=== PATIENT | female | born 1990 | race Caucasian/White ===

== ENCOUNTER → 2018-07-31 16:49 | Outpatient (CLI) | payer OTHER, SELFPAY ==
[2018-07-31 10:16] VITALS: BMI 26.4
[2018-07-31 21:45] LABS: Chlamydia Trachomatis by PCR Negative (Negative); Neisserai gonorrhoeae by PCR Negative (Negative); Probe Check PASS; Sample Adequacy Control PASS; Specimen Processing Control PASS
[2018-08-06 11:24] LABS: HPV Reflexed? NOT INDICATED
--- OUTSIDE RECORDS SUMMARY | 2018-09-16 14:33 | XMS RPT_ITS ---
:1990 Author Organization OHIP Care Team Providers Name Role Phone Marija Torrez Attending Unavailable Nikita Stein Referring Unavailable Marija Torrez Attending Unavailable Marija Torrez Referring Unavailable Nikita Stein Primary Care Unavailable PROBLEMS PROBLEMS DATE TYPE CONDITION / CODE ATTENDING STATUS SOURCE 08/11/2018 Unknown Z97.5 - Presence of Marija Torrez Active [place] (intrauterine) [facility] contraceptive Hospital device / Repository Z97.5(ICD-10) 08/11/2018 Unknown Z30.432 - Encounter ShanMarija myles Active [place] for removal of Community intrauterine Hospital contraceptive Repository device / Z30.432(ICD-10) 08/11/2018 Unknown Z01.419 - Encounter ShanMarija myles Active [place] for gynecological Community examination Hospital (general) (routine) Repository without abnormal findings / Z01.419(ICD-10) 08/11/2018 Unknown Z12.4 - Encounter [place] Active [place] for screening for Community malignant neoplasm Hospital of cervix / Repository Z12.4(ICD-10) 08/11/2018 Unknown Z11.3 - Encounter ShanMarija myles Active [place] for screening for Community infections with a Hospital predominantly Repository sexual mode of transmission / Z11.3(ICD-10) 08/11/2018 Unknown Z30.433 - Encounter [place], Molly Active [place] for removal and Community reinsertion of Hospital intrauterine Repository contraceptive device / Z30.433(ICD-10) PROCEDURES PROCEDURES No Procedure Records FoundRESULTS RESULTS COMPLIANCE DIRECTOR OFFICE VISIT Observed: 07/31/2018 Status: F Source: [place] REPORT 11:01 AM [facility] REPOSITORY [facility] [address] [place] [address] OFFICE VISIT Date of Service: 07/31/18 MR#: [id number] Acct: [id number] Name: DARIEN COATS Rep #: [id number] : 1990 Provider: JACOB Torrez Age/Sex: 28/F Location: [facility] [place] Status: Signed Intake Vital Signs07/31/18 Height 5 ft 1 in 07/31/18 Weight: 140 lb 07/31/18 Body Mass Index (BMI) 26.4 07/31/18 Blood Pressure 122/80 H Intake Visit Reasons: MIRENA REPLACEMENT Chief Complaint: NEW annual Heel Sprayer First Required: No Is patient in pain?: No Allergies No Known Allergies Allergy (Verified 07/31/18 10:16) Medications multivitamin,ru-zzel-tszkjzdo tablet 1 tab PO DAILY 07/31/18 [History Confirmed 07/31/18] Is last menstrual period known: No Post menopausal: No Patient : No : No PFSH Surgical History History of ankle surgery (Acute) Family History Father Diabetes Heart disease Social History Smoking Status: Never smoker alcohol intake: current details: social substance use type: does not use caffeine: Yes what type of physical activity do you participate in: walking, running seatbelt use: always do you feel safe at home: Yes 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 Last PAP: 2017 at [facility] History of abnormal PAP: colp age 23 negative Wants mirena replaced. Female Reproductive History Questions: Metorrhagia: No, Sexually active: Yes, Dyspareunia: No, PCB: No ROS Const Constitutional: Denies fatigue, weight gain or weight loss Cardio Card: Denies chest pain Resp Resp: Denies cough or shortness of breath with activity GI GI: Denies abdominal pain, constipation, change in stools, vomiting or bloating : Reports as per HPI; denies urinary frequency, pelvic pain, urinary urgency, vaginal discharge, vaginal itching, urinary incontinence or difficulty urinating Exam Const General: cooperative, healthy appearing, no acute distress, well developed Orientation: alert, oriented to person, oriented to place [facility] Head: normal to inspection Neck Neck: normal visual inspection Thyroid: thyroid normal Lymphatic: no lymphadenopathy noted Chest Breast inspection: normal inspection of the breasts, normal inspection of the axillae Breast palpation: normal palpation of the breasts, normal palpation of the axillae, no axillary lymphadenopathy Resp Effort AND Inspection: normal respiratory effort GI Palpation: soft, nontender, no masses Rectal Exam: deferred External Female Exam: normal external appearance, normal appearance of the urethra Urethra: normal appearance of the urethra, normal palpation Speculum Exam - Vagina: normal appearance of the vagina, normal vaginal discharge Speculum Exam - Cervix: normal appearance of the cervix Bimanual Exam- Vagina AND Uterus: normal bimanual exam, uterine size normal, uterine shape normal, uterus non-tender Bimanual Exam- Adnexa, other: normal adnexae, no adnexal masses, adnexae non-tender, pelvic support normal Pelvic Support: normal Neuro General: alert, oriented x3 Psych Affect: normal affect Office Procedures IUD Removal IUD Removal Details: Sign out documentation: Completed Procedure: Speculum placed in vagina, IUD string visualized/short and grasped with tissue forceps. IUD easily removed and patient tolerated well Liletta IUD IUD GC/Chlamydia:: done Test: Yes Not Applicable Consent Signed: Yes Time out checklist: patient, procedure, site marked/identified, positioning of patient, supplies available, allergies confirmed, team agrees on procedure IUD: Yes Jayant Time out time: 10:46 Details: Sign in Communication: Completed Sign out documentation: Completed The uterus sounded to 7 cm. After prepping the cervix with betadine and using sterile technique, the cervix was grasped with a single tooth tenaculum and the IUD was inserted without difficulty and the string was cut to 3cm from the external os of the cervix. All instruments were removed from the vagina and excellent hemostasis was noted. Procedure Summary: patient tolerated the procedure well without complication. levonorgestrel 20 mcg/24 hr (5 years) intrauterine device 1 insert Intrauterine ONCE IUD Details: Sign in Communication: Completed Sign out documentation: Completed The uterus sounded to [] cm. After prepping the cervix with betadine and using sterile technique, the cervix was grasped with a single tooth tenaculum and the IUD was inserted without difficulty and the string was cut to 3cm from the external os of the cervix. All instruments were removed from the vagina and excellent hemostasis was noted. Procedure Summary: patient tolerated the procedure well without complication. 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 Encounter for gynecological examination without abnormal finding Z01.419 2. Pap smear for cervical cancer screening Z12.4 3. Screen for STD (sexually transmitted disease) Z11.3 4. Encounter for IUD removal and reinsertion Z30.433 Plan Completed breast and pelvic exam Reviewed diet and exercise Pap thin prep pap with reflex HPV Contraception-mirena IUD removed, liletta IUD inserted. Reviewed S AND S infection and condom use. Written information given RTO 6 weeks Marija Torrez ADJ[employer]CT [employer] MEDICAL TERMINOLOGY Orders Orders: Medications New: Coding Level of Care Code Off vis,est,prev 18-39yrs Diagnoses Encounter for gynecological examination without abnormal finding Z01.419 Gynecological examination findings: abnormal findings ABSENT Pap smear for cervical cancer screening Z12.4 Screen for STD (sexually transmitted disease) Z11.3 Encounter for IUD removal and reinsertion Z30.433 Additional Codes IUD (09013) 07/31/18 1101 <Electronically signed by Marija WOLFF> Date Marija WOLFF Cosigner Signature: Date (if applicable) CC: CT/NG WC BY PCR Collected: 07/31/2018 Status: F Source: [place] 10:20 AM [facility] REPOSITORY TYPE CODE TESTS RESULT OUT OF RANGE REFERENCE UNITS LAB L8200.2100 Negative Normal Chlam Negative Trac PCR LAB L8200.2200 Negative Normal NG by Negative PCR Performed By: #### L8200.2000 #### [facility] [address] [place], [address] PAP I-G W/RFX Collected: 07/31/2018 Status: F Source: [place] HRHPV-APTIMA 10:20 AM [facility] REPOSITORY Order Comment: CYTOLOGY INFORMATION: - CLINICAL INFORMATION: - DATE LMP/MENOPAUSE: - COLLECTION VIAL: Thin Prep Vial - PAYABLE MANAGER SOURCE: CERVICAL - COLLECTION TECHNIQUE: BRUSH/SPATULA Specimen Comment: [id number] Specimen Comment: Source.............Cervix Specimen Comment: No. of containers..01 ThinPrep Vial TYPE CODE TESTS RESULT OUT OF RANGE REFERENCE UNITS LAB L7400.0800 . Normal DIAGN Comment Result Comment: NEGATIVE FOR INTRAEPITHELIAL LESION AND MALIGNANCY. REACTIVE CELLULAR CHANGES AND/OR REPAIR ARE PRESENT. LAB L7400.0900 . Normal ADEQ Comment Result Comment: Satisfactory for evaluation. Endocervical and/or squamous metaplastic cells (endocervical component) are present. LAB L7400.1400 . Normal PERFORM Comment Result Comment: Namita Baldwin, Family Counselor LAB L7400.1700 . Normal SIGN Comment Result Comment: Rima Stein MD, Pathologist LAB L7400.2575 . Normal TEST METHOD Comment Result Comment: This liquid based ThinPrep(R) pap test was screened with the use of an image guided system. LAB L7400.2600 . Normal . COMM LAB L7400.2700 . Normal PAPSMR Comment Result Comment: The Pap smear is a screening test designed to aid in the detection of premalignant and malignant conditions of the uterine cervix. It is not a diagnostic procedure and should not be used as the sole means of detecting cervical cancer. Both false-positive and false-negative reports do occur. LAB L7400.2800 . Normal HPV RFLX Comment Result Comment: The HPV DNA reflex criteria were not met with this specimen result therefore, no HPV testing was performed. Performed at: [address] [id number] Staff Reporter: Mara Ballard MD, Phone: [phone] Performed By: #### L7400.0353 #### [facility] (refer to report for specific site) refer to report for address and phone number ALLERGIES ALLERGIES DATE TYPE / CODE NAME / CODE REACTION SEVERITY SOURCE 07/31/2018 Drug No Known Unknown [facility] Allergy/4160 Allergies/F00 Hospital 32424(SNOMED 2213111(RXNOR Repository CT) M) ENCOUNTERS ENCOUNTERS ADMIT/DISCHARGE ACCOUNT ADMITTING ENCOUNTER LOCATION SOURCE NUMBER CLASS 07/31/2018 [id number] [place] [facility] ing:[facility] Repository 07/31/2018/ [id number] Ambulatory BMSBuilding:B [place] [address] [facility] Repository PAYERS PAYERS ENCOUNTER GUARANTOR PAYER SUBSCRIBER SOURCE 07/31/2018 DARIEN ROBERTS Primary DARIEN COATS[address] [facility] BUTLERDOB: [address] [id number] [address]Tel: (330) Number: Repository [phone] () [id number] Date:[id number], [place] [address]ID: 07/31/2018 Secondary NOT GIVENUNK [place] Insurance:SELF PAY [facility] Number: Effective Repository Date:2018-07-31 07/31/2018 [facility] Primary DARIEN COATS277 [address] Insurance:[facility] BUTLERDOB: [place] [id number] [id number] [id number]: (330) Number: Repository [phone] () [id number] Date:[id number] [facility] [place], [place] [address]XX: 07/31/2018 Secondary NOT GIVENUNK [place] Insurance:SELF PAY [facility] Number: Effective Repository Date:2018-07-31
== END ==
PROVIDERS: Family Provider Family Medicine; PCP Family Medicine; Referring Provider Nurse Practitioner Women's Health; Visit Provider Nurse Practitioner Women's Health
DX: Z11.3 Encounter for screening for infections with a predominantly sexual mode of transmission (principal); Z12.4 Encounter for screening for malignant neoplasm of cervix
CPT/HCPCS: 87491; 87591; 87624; 88175; G0145